=== PATIENT | female | born 1990 | race American Indian/Alaskan Native ===

== ENCOUNTER 2019-06-29 21:24 | Emergency (ER) | payer OTHER ==
[2019-06-29 21:33] VITALS: BP 122/86
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
[2019-06-29 22:14] LABS: HCG Qualitative,Urine Negative (Negative)
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
== END 2019-06-29 23:08 | disposition home or self-care (01) ==
LOC: ED 21:24
DX: S43.401A Unspecified sprain of right shoulder joint, initial encounter (principal); Z79.899 Other long term (current) drug therapy; V89.0XXA Person injured in unspecified motor-vehicle accident, nontraffic, initial encounter; Y93.89 Activity, other specified; Y92.89 Other specified places as the place of occurrence of the external cause; Y99.8 Other external cause status
CPT/HCPCS: 81025; 99283